=== PATIENT | female | born 1940 | race Caucasian/White ===

== ENCOUNTER → 2023-03-05 09:48 | Outpatient (CLI) | payer MEDICARE, OTHER, SELFPAY ==
--- NOTE | 2023-03-05 | DI.RAD.S_ITS ---
PROCEDURE: FL JOINT INJECTION LARGE RT INDICATIONS: OSTEOARTHRITIS COMPARISON: None. TECHNIQUE: The indications, alternatives, benefits, risks, and complications of the procedure were explained to the patient. Written informed consent was obtained and placed in the chart. The patient was placed in an appropriate position on the fluoroscopy table, and a site was chosen for percutaneous access under fluoroscopic guidance. The site was prepped and draped in a sterile fashion. Local anesthetic was administered using a 1% lidocaine solution. A hypodermic or spinal needle was then used to access the symptomatic joint. Intra-articular location of the needle tip was confirmed by injecting a small amount of contrast, followed by steroid administration. The needle was then withdrawn, and a bandage applied to the puncture site. FINDINGS: Joint injected: Right shoulder Medications injected: 4 mL of 40 mg/mL Kenalog and 0.5% Ropivacaine mixture. Patient's pain before injection: 2-4 out of 10. Patient's pain after injection: 0 out of 10. Complications: None. IMPRESSION: Successful fluoroscopically guided administration of steroid and anaesthetic solution into the right joint. Dictated by: Jocelyn Duncan M.D. on 03/05/2023 at 12:02 Approved by: Jocelyn Duncan M.D. on 03/05/2023 at 12:02
[2023-03-05] MEDS: LIDOCAINE 1% 20 ML INJ (11:53)
[2023-03-05] MEDS: TRIAMCINOLONE 40 MG/ML VIAL INTRA-ARTI (11:54)
[2023-03-05] MEDS: ROPIVACAINE 0.5% PF 5 MG/ML 20ML VIAL 20 ML INJ (11:54)
== END ==
PROVIDERS: PCP Internal Medicine; Referring Provider Orthopaedic Surgery; Visit Provider Orthopaedic Surgery
DX: M19.011 Primary osteoarthritis, right shoulder (principal)
CPT/HCPCS: 20610; 77002

== ENCOUNTER → 2023-11-15 18:39 | Outpatient (CLI) | payer MEDICARE, OTHER, SELFPAY ==
--- NOTE | 2023-11-15 18:43 | DI.MRI.S_ITS ---
PROCEDURE: MR CERVICAL SPINE WO CON INDICATIONS: PAIN,JOINT,SHOULDER,RIGHT TECHNIQUE: Noncontrast sagittal T1 spin echo and T2 fast spin echo, sagittal STIR, foraminal oblique sagittal T2 fast spin echo, and axial gradient echo or T2 fast spin echo through the cervical spine. COMPARISON: None. FINDINGS: Image quality: Excellent. Alignment and Curvature: There is normal bony alignment. Bone Marrow: Marrow demonstrates normal overall signal. Spinal Cord: Visualized spinal cord has normal size and signal. No cerebellar tonsillar herniation. Paraspinous Soft Tissues: No paravertebral masses. Prevertebral soft tissues are normal in thickness. C2-C3: Loss of disc signal and height. Mild, diffuse disc bulge. Mild bilateral facet hypertrophy. No central stenosis. Mild bilateral neural foraminal narrowing. No neural compression. C3-C4: Loss of disc signal and height. Moderate, diffuse disc bulge. Mild bilateral facet hypertrophy. Mild right and moderate left uncovertebral joint hypertrophy. Mild to moderate narrowing of the central canal. Moderate right and severe left neural foraminal narrowing with compression of the exiting left C4 nerve root. C4-C5: Loss of disc signal and height. Mild, diffuse disc bulge. Mild bilateral facet hypertrophy. Moderate right and mild left uncovertebral hypertrophy. Mild narrowing of the central canal. Severe right moderate left neural foraminal narrowing with compression of the exiting right C5 nerve root. C5-C6: Loss of disc signal and height. Moderate, diffuse disc bulge. Mild bilateral facet hypertrophy. Moderate bilateral uncovertebral joint hypertrophy. Severe narrowing of the central canal with slight compression of cervical spinal cord. Severe bilateral neural foraminal narrowing with compression of the exiting C6 nerve roots. C6-C7: Loss of disc signal and height. Moderate, diffuse disc bulge. Mild bilateral facet hypertrophy. Moderate bilateral uncovertebral joint hypertrophy. Moderate narrowing of the central canal. Severe bilateral neural foraminal narrowing with compression of the exiting C7 nerve roots. C7-T1: Loss of disc signal. Mild, diffuse disc bulge. Mild bilateral facet hypertrophy. Mild narrowing of the central canal. Mild bilateral neural foraminal narrowing. No neural compression IMPRESSION: Multilevel degenerative disc disease. Multilevel facet and uncovertebral arthropathy. Severe C5-C6 central canal stenosis with mild compression of the cervical spinal cord. Severe left C3-C4 neural foraminal stenosis with compression of the left C4 nerve root. Severe right C4-C5 neural foraminal stenosis with compression of the right C5 nerve root. Severe bilateral C5-C6 and C6-C7 neural foraminal stenosis with compression of the bilateral C6 and C7 nerve roots. Dictated by: Elma Ceron MD, PhD on 11/18/2023 at 12:55 Approved by: Elma Ceron MD, PhD on 11/18/2023 at 13:00
== END ==
LOC: MRI 18:41
PROVIDERS: PCP Internal Medicine; Referring Provider Physical Medicine & Rehabilitation Pain Medicine; Visit Provider Physical Medicine & Rehabilitation Pain Medicine
DX: M50.11 Cervical disc disorder with radiculopathy, high cervical region (principal); M47.12 Other spondylosis with myelopathy, cervical region; M47.22 Other spondylosis with radiculopathy, cervical region; M48.02 Spinal stenosis, cervical region; M25.511 Pain in right shoulder
CPT/HCPCS: 72141

== ENCOUNTER → 2024-09-09 16:59 | Outpatient (CLI) | payer MEDICARE, OTHER, SELFPAY | PROVIDERS: PCP Family Medicine; Referring Provider Orthopaedic Surgery Adult Reconstructive Orthopaedic Surgery; Visit Provider Orthopaedic Surgery Adult Reconstructive Orthopaedic Surgery | DX: Z96.641 Presence of right artificial hip joint (principal) | CPT/HCPCS: 36415; 82495; 83018 ==

== ENCOUNTER → 2024-12-19 08:21 | Outpatient (CLI) | payer MEDICARE, OTHER, SELFPAY ==
--- NOTE | 2024-12-19 08:25 | DI.CT.S_ITS ---
PROCEDURE: CT CHEST ABD PEL W CON INDICATIONS: endometrial cancer TECHNIQUE: After the administration of intravenous contrast, 5 mm thick sections acquired from the lung apices to the symphysis. 5 mm coronal and sagittal reformats were performed, with additional 7 mm MIP reformats through the lungs. For radiation dose reduction, the following was used: automated exposure control, adjustment of mA and/or kV according to patient size. COMPARISON: None. FINDINGS: Image quality: Excellent. CHEST: Lower Neck: No enlarged lymph nodes. Thyroid: 1.2 cm low-density left thyroid nodule, too small to warrant follow- up. The gland is otherwise normal. Axillae: No enlarged lymph nodes. Chest Wall: No suspicious masses. Lungs and Pleura: Right lower lobe platelike atelectasis and a few right major fissure lymph nodes. Perivascular nodule in the anterior left lower lobe, 5 mm, 5/222. Mild bilateral bronchial wall thickening centrally. Peripheral airways are patent. No bronchiectasis. No pleural effusions. Heart: Heart size is normal. No pericardial effusion. Thoracic Vessels: The aorta and pulmonary arteries demonstrate normal size. Mediastinum and Maggie: No enlarged lymph nodes. Esophagus: No wall thickening. No hiatal hernia. ABDOMEN: Liver: No solid mass. Gallbladder: Surgically absent. Biliary ducts: Appropriate biliary tree caliber post cholecystectomy. Pancreas: Normal size and morphology without visible ductal dilatation or inflammation. Spleen: Size is within normal limits. Adrenal Glands: No adrenal nodules. Kidneys and Ureters: Left lower pole collecting system calcifications measuring up to 6 mm. Right midpole cluster of punctate calcifications. No solid renal mass or hydronephrosis. Small right-sided cortical cysts. Ureters are nondilated. Stomach and Bowel: Decompressed stomach. Normal caliber small bowel loops without wall thickening or obstruction. Appendix was not seen. Extensive diverticulosis throughout the sigmoid colon. Peritoneum: No free fluid, fluid collections, free air, or significant intraperitoneal fat stranding. No intraperitoneal nodularity. Ventral Wall: Midline metallic fascial sutures. Abdominal Nodes: Shotty retroperitoneal lymph nodes, one of the largest measures 7 mm short axis, 2/116. No bulky adenopathy. Vessels: Aorta and inferior vena cava are normal in size. PELVIS: Pelvic Organs: Anteverted uterus with mildly distended, cystic appearing the fundal endometrium. Age-appropriate, normal appearing ovaries. No other adnexal masses. Bladder: No bladder wall thickening, accounting for underdistention. Pelvic Nodes: No enlarged lymph nodes. Miscellaneous: Two coarse prominent calcifications, an ovoid calcification in the right lower adnexa, and one adjacent to the right uterine fundus. No suspicious pelvic mass or inguinal hernia. Bones: Bilateral hip arthroplasty causing beam hardening artifact across the low pelvis. There are rounded sclerotic lesions in T7, T11, and L1. No other definite bone lesions are seen. IMPRESSION: Distended uterine endometrium consistent with patient's known primary malignancy. Nonspecific 5 mm perivascular left lower lobe lung nodule. This is equivocal, too small for further characterization by PET-CT or by biopsy. Continued attention on follow-up recommended. Findings suggesting mild bronchitis. Shotty retroperitoneal adenopathy. Attention on the subsequent follow-ups. No findings to suggest metastatic disease in the abdomen. Few small round sclerotic bone lesions are indeterminate, potentially bone islands but metastatic disease not excluded. Attention on follow-up recommended. Dictated by: Caryn Palmer M.D. on 12/19/2024 at 20:32 Approved by: Caryn Palmer M.D. on 12/19/2024 at 20:55
[2024-12-19 08:49] LABS: Estimated Glomerular Filt Rate > 60 mL/min (>60)
--- NOTE | 2024-12-19 09:32 | EKG_ITS ---
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
== END ==
PROVIDERS: PCP Family Medicine; Referring Provider Obstetrics & Gynecology Gynecologic Oncology; Visit Provider Obstetrics & Gynecology Gynecologic Oncology
DX: Z01.818 Encounter for other preprocedural examination (principal); C54.1 Malignant neoplasm of endometrium; R91.1 Solitary pulmonary nodule; N28.1 Cyst of kidney, acquired; K57.30 Diverticulosis of large intestine without perforation or abscess without bleeding; Z90.49 Acquired absence of other specified parts of digestive tract; Z96.643 Presence of artificial hip joint, bilateral
CPT/HCPCS: 36415; 71260; 74177; 82565; 93005; Q9967

== ENCOUNTER → 2025-02-15 13:11 | Outpatient (CLI) | payer MEDICARE, OTHER, SELFPAY | PROVIDERS: PCP Family Medicine; Visit Provider Nurse Practitioner Family | DX: R30.0 Dysuria (principal) | CPT/HCPCS: 87086 ==